=== PATIENT | female | born 1975 | race Caucasian/White ===

== ENCOUNTER 2018-10-25 19:07 | Emergency (ER) | payer MEDICAID ==
[2018-10-25 19:34] VITALS: BP 132/76
[2018-10-25] MEDS ORDERED: Albuterol/Ipratropium 3.0-0.5 MG/3 ML Neb Soln NEB ONE (19:39)
[2018-10-25] MEDS ORDERED: methylPREDNISolone Sodium Succinate 125 MG/2 ML SDV IM ONE (19:39)
--- NOTE | 2018-10-25 19:50 | EDM.PDOC ---
ED HPI GENERAL MEDICAL PROBLEM - General Chief Complaint: Respiratory Problem Stated Complaint: COUGH Time Seen by Provider: 10/25/18 19:48 Source of Information: Reports: Patient - History of Present Illness INITIAL COMMENTS - FREE TEXT/NARRATIVE: HISTORY AND PHYSICAL: History of present illness: [Patient presents with COPD presents with cough and wheeze no fever nausea vomiting chills sweats she does complain of sore throat otherwise no nausea vomiting chills sweats no chest pain shortness breath headache dizziness or palpitation no bowel or urine symptoms Review of systems: As per history of present illness and below otherwise all systems reviewed and negative. Past medical history: As per history of present illness and as reviewed below otherwise noncontributory. Surgical history: As per history of present illness and as reviewed below otherwise noncontributory. Social history: No reported history of drug or alcohol abuse. Family history: As per history of present illness and as reviewed below otherwise noncontributory. Physical exam: HEENT: Atraumatic, normocephalic, pupils reactive, negative for conjunctival pallor or scleral icterus, mucous membranes moist, throat clear, neck supple, nontender, trachea midline. Lungs: Clear to auscultation, breath sounds equal bilaterally, chest nontender. Post Solu-Medrol and DuoNeb Heart: S1S2, regular, negative for clicks, rubs, or JVD. Abdomen: Soft, nondistended, nontender. Negative for masses or hepatosplenomegaly. Negative for costovertebral tenderness. Pelvis: Stable nontender. Genitourinary: Deferred. Rectal: Deferred. Extremities: Atraumatic, negative for cords or calf pain. Neurovascular unremarkable. Neuro: Awake, alert, oriented. Cranial nerves II through XII unremarkable. Cerebellum unremarkable. Motor and sensory unremarkable throughout. Exam nonfocal. Diagnostics: [Influenza strep and RSV Chest 1 view ] Therapeutics: DuoNeb Solu-Medrol 125 mg IM [Z-Santos Prednisone 20 mg by mouth daily continue home medications as directed ] Impression: [ bronchitis/range iritis COPD ] Definitive disposition and diagnosis as appropriate pending reevaluation and review of above. - Related Data Allergies Allergy/AdvReac Type Severity Reaction Status Date / Time Latex, Natural Rubber Allergy Rash Verified 10/25/18 19:34 Home Meds: Home Meds . 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 Musculoskeletal History: Reports: None Neurological History: Reports: None Psychiatric History: Reports: Bipolar, Depression Endocrine/Metabolic History: Reports: None Hematologic History: Reports: None Immunologic History: Reports: None Oncologic (Cancer) History: Reports: None Dermatologic History: Reports: Psoriasis - Infectious Disease History Infectious Disease History: Reports: MRSA, Other (See Below) Other Infectious Disease History: 3 swabs to clear MRSA with this - Past Surgical History HEENT Surgical History: Reports: Oral Surgery Female Surgical History: Reports: Cervical Cryotherapy, D&C Social & Family History - Family History Family Medical History: Noncontributory ED ROS GENERAL - Review of Systems Review Of Systems: See Below ED EXAM, GENERAL - Physical Exam Exam: See Below Course - Vital Signs Last Recorded V/S: Last Vital Signs Temp 97.6 F 10/25/18 19:27 Pulse 92 10/25/18 19:27 Resp 21 H 10/25/18 19:27 BP 132/76 10/25/18 19:27 Pulse Ox 98 10/25/18 19:27 - Orders/Labs/Meds Orders: Active Orders 24 hr Category Date Time Status RT Aerosol Therapy [RC] ASDIRECTED Care 10/25/18 19:39 Active CULTURE STREP A CONFIRMATION [] Stat Lab 10/25/18 19:28 Results STREP SCRN A RAPID W CULT CONF [] Stat Lab 10/25/18 19:28 Results Meds: Medications Discontinued Medications Generic Name Dose Route Start Last Admin Trade Name Freq PRN Reason Stop Dose Admin Albuterol/Ipratropium 3 ml 10/25/18 19:39 10/25/18 19:56 Duoneb 3.0-0.5 Mg/3 Ml NEB 10/25/18 19:40 3 ml ONETIME ONE Administration Methylprednisolone Sodium Succinate 125 mg 10/25/18 19:39 10/25/18 20:34 Solu-Medrol IM 10/25/18 19:40 125 mg ONETIME ONE Administration Departure - Departure Time of Disposition: 20:39 Disposition: Home, Self-Care 01 Condition: Good Clinical Impression: COPD (chronic obstructive pulmonary disease), Bronchitis, Pharyngitis - Discharge Information Referrals: PCP,None [Primary Care Provider] - Forms: ED Department Discharge Additional Instructions: The following information is given to patients seen in the emergency department who are being discharged to home. This information is to outline your options for follow-up care. We provide all patients seen in our emergency department with a follow-up referral. The need for follow-up, as well as the timing and circumstances, are variable depending upon the specifics of your emergency department visit. If you don't have a primary care physician on staff, we will provide you with a referral. We always advise you to contact your personal physician following an emergency department visit to inform them of the circumstance of the visit and for follow-up with them and/or the need for any referrals to a consulting specialist. The emergency department will also refer you to a specialist when appropriate. This referral assures that you have the opportunity for follow-up care with a specialist. All of these measure are taken in an effort to provide you with optimal care, which includes your follow-up. Under all circumstances we always encourage you to contact your private physician who remains a resource for coordinating your care. When calling for follow-up care, please make the office aware that this follow-up is from your recent emergency room visit. If for any reason you are refused follow-up, please contact the [facility] emergency department at and asked to speak to the emergency department charge nurse. - My Orders Last 24 Hours: My Active Orders 10/25/18 19:28 CULTURE STREP A CONFIRMATION [RM] Stat STREP SCRN A RAPID W CULT CONF [RM] Stat 10/25/18 19:39 RT Aerosol Therapy [RC] ASDIRECTED - Assessment/Plan Last 24 Hours: My Active Orders 10/25/18 19:28 CULTURE STREP A CONFIRMATION [RM] Stat STREP SCRN A RAPID W CULT CONF [RM] Stat 10/25/18 19:39 RT Aerosol Therapy [RC] ASDIRECTED
--- NOTE | 2018-10-25 20:11 | CR ---
HISTORY: Cough pain and shortness of breath. COMPARISON: None. FINDINGS: Single PA view of the chest. The lungs are clear. Costophrenic angles sharp. Heart size and pulmonary vascularity are within normal limits. The bony thorax is intact. Dictated by Seema Liu MD @ Oct 25 2018 8:08PM Signed by Dr. Seema Liu @ Oct 25 2018 8:09PM
== END 2018-10-25 20:52 | disposition home or self-care (01) ==
LOC: MW.ED 19:07
DX: J44.9 Chronic obstructive pulmonary disease, unspecified (principal); J02.9 Acute pharyngitis, unspecified; Z91.040 Latex allergy status
CPT/HCPCS: 71045; 87081; 87804; 87807; 87880; 94640; 96372; 99284; J2930; 99283; J7620-GY

== ENCOUNTER 2019-02-27 19:35 | Emergency (ER) | payer MEDICAID ==
--- NOTE | 2019-02-27 19:41 | EDM.PDOC ---
ED HPI GENERAL MEDICAL PROBLEM - General Stated Complaint: CONGESTION,COUGH,POSS FEVER Time Seen by Provider: 02/27/19 19:40 Source of Information: Reports: Patient History Limitations: Reports: No Limitations - History of Present Illness INITIAL COMMENTS - FREE TEXT/NARRATIVE: HISTORY AND PHYSICAL: History of present illness: Patient is a 43-year-old female who presents to the emergency room with complaints of cough and sinus congestion. She states that her family members who have also presented to the emergency room all have had sore throats and nasal congestion. She does have a history of asthma and has been using her inhalers just not been able to alleviate her cough. Patient denies any fever, chills, headache, change in vision, syncope or near syncope. Denies any chest pain, back pain. Denies any GI or symptoms. Patient has been eating and drinking appropriately. Review of systems: As per history of present illness and below otherwise all systems reviewed and negative. Past medical history: As per history of present illness and as reviewed below otherwise noncontributory. Surgical history: As per history of present illness and as reviewed below otherwise noncontributory. Social history: See social history for further information Family history: As per history of present illness and as reviewed below otherwise noncontributory. Physical exam: General: Well-developed and well nourished 43-year-old female. Alert and oriented. Nontoxic appearing and in no acute distress. HEENT: Atraumatic, normocephalic, pupils equal and reactive bilaterally, negative for conjunctival pallor or scleral icterus, mucous membranes moist, TMs normal bilaterally, throat clear, neck supple, nontender, trachea midline. No drooling or trismus noted. No meningeal signs. No hot potato voice noted. Lungs: Fine inspiratory and expiratory wheezing noted to bases bilaterally, breath sounds equal bilaterally, chest nontender. Heart: S1S2, regular rate and rhythm without overt murmur Abdomen: Soft, nondistended, nontender. Negative for masses or hepatosplenomegaly. Negative for costovertebral tenderness. Skin: Intact, warm, dry. No lesions or rashes noted. Extremities: Atraumatic, moves all extremities per self without difficulty or deficits, negative for cords or calf pain. Neurovascular unremarkable. Neuro: Awake, alert, oriented. Cranial nerves II through XII unremarkable. Cerebellum unremarkable. Motor and sensory unremarkable throughout. Exam nonfocal. Notes: Due to patient's history of asthma and history of smoking will treat with Z-Santos and Medrol Dosepak. Signs and symptoms that would prompt her to return to the emergency room were reviewed and discussed. Supportive care measures were reviewed and discussed. Voices understanding and is agreeable to plan of care. Denies any further questions or concerns at this time. Diagnostics: CXR Therapeutics: None Prescription: Zpak Medrol Dosepak Impression: Bronchitis Plan: 1. Stop smoking. 2. You may continue using your inhalers that you have prescribed at home. Take the antibiotic and steroid as prescribed 3. Follow-up with primary care provider as we discussed. Return to the ED as needed and as discussed. Definitive disposition and diagnosis as appropriate pending reevaluation and review of above. "Lung" Pain Score (Numeric/FACES): 5 - Related Data Allergies Allergy/AdvReac Type Severity Reaction Status Date / Time Latex, Natural Rubber Allergy Rash Verified 02/27/19 19:58 Home Meds: Home Meds . 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 History: Elective Musculoskeletal History: Reports: None Neurological History: Reports: None Psychiatric History: Reports: Bipolar, Depression Other Psychiatric History: states she's supposed to be on medication but is not taking them Endocrine/Metabolic History: Reports: None Hematologic History: Reports: None Immunologic History: Reports: None Oncologic (Cancer) History: Reports: None Dermatologic History: Reports: Psoriasis - Infectious Disease History Infectious Disease History: Reports: MRSA, Other (See Below) Other Infectious Disease History: 3 swabs to clear MRSA with this - Past Surgical History HEENT Surgical History: Reports: Oral Surgery Female Surgical History: Reports: Cervical Cryotherapy, D&C Social & Family History - Family History Family Medical History: Noncontributory - Caffeine Use Caffeine Use: Reports: Coffee ED ROS GENERAL - Review of Systems Review Of Systems: ROS reveals no pertinent complaints other than HPI. ED EXAM, GENERAL - Physical Exam Exam: See Below (See dictation) Course - Vital Signs Last Recorded V/S: Last Vital Signs Temp 96.7 F 02/27/19 19:45 Pulse 103 H 02/27/19 19:45 Resp 16 02/27/19 19:45 BP 126/70 02/27/19 19:45 Pulse Ox 94 L 02/27/19 19:45 - Orders/Labs/Meds Orders: Active Orders 24 hr Category Date Time Status Chest 2V [CR] Stat Exams 02/27/19 19:56 Taken Departure - Departure Time of Disposition: 20:49 Disposition: Home, Self-Care 01 Clinical Impression: Bronchitis - Discharge Information Instructions: Acute Bronchitis, Adult, [id number] Additional Instructions: The following information is given to patients seen in the emergency department who are being discharged to home. This information is to outline your options for follow-up care. We provide all patients seen in our emergency department with a follow-up referral. The need for follow-up, as well as the timing and circumstances, are variable depending upon the specifics of your emergency department visit. If you don't have a primary care physician on staff, we will provide you with a referral. We always advise you to contact your personal physician following an emergency department visit to inform them of the circumstance of the visit and for follow-up with them and/or the need for any referrals to a consulting specialist. The emergency department will also refer you to a specialist when appropriate. This referral assures that you have the opportunity for follow-up care with a specialist. All of these measure are taken in an effort to provide you with optimal care, which includes your follow-up. Under all circumstances we always encourage you to contact your private physician who remains a resource for coordinating your care. When calling for follow-up care, please make the office aware that this follow-up is from your recent emergency room visit. If for any reason you are refused follow-up, please contact the [facility] Emergency Department at and asked to speak to the emergency department charge nurse. [facility] [address] [place] [id number] [facility] [address] [place] [id number] 1. Stop smoking. 2. You may continue using your inhalers that you have prescribed at home. Take the antibiotic and steroid as prescribed 3. Follow-up with primary care provider as we discussed. Return to the ED as needed and as discussed. - My Orders Last 24 Hours: My Active Orders 02/27/19 19:56 Chest 2V [CR] Stat - Assessment/Plan Last 24 Hours: My Active Orders 02/27/19 19:56 Chest 2V [CR] Stat
--- NOTE | 2019-02-27 20:55 | CR ---
INDICATION: Pt w/dyspnea. CHEST, PA AND LATERAL Upright PA and lateral radiographs of the chest were performed. Comparison: 10/25/2018. The lungs appear clear and there are no pleural effusions. Heart size and pulmonary vasculature appear normal. Visualized bones show no significant findings. IMPRESSION: No acute intrathoracic abnormality identified. RYAN BARRERA MD [employer] Dictated by: Ronaldo Barrera MD @ 02/27/2019 20:53:13 (Electronically Signed)
[2019-02-27 21:00] VITALS: BP 115/64
== END 2019-02-27 21:00 | disposition home or self-care (01) ==
LOC: MW.ED 19:35
DX: J40 Bronchitis, not specified as acute or chronic (principal); Z91.040 Latex allergy status
CPT/HCPCS: 71046; 71046-26; 99283-25